=== PATIENT | female | born 1975 | race Caucasian/White ===

== ENCOUNTER 2017-03-12 20:02 | Emergency (ER) | payer SELFPAY ==
[~2017-03-12] VITALS: Ht 172.7 cm; Wt 70.0 kg
[2017-03-12 20:03] VITALS: BP 142/75; PULSE 95; RESP 15; TEMP 97.4; O2SAT 100
--- NOTE | 2017-03-12 20:09 | PD ---
Physical Exam Date Seen by Provider: Mar 12, 2017 Time Seen by Provider: 20:08 Narrative 42 yo female here for laceration to the left thumb. Cut today with clean razor. Unknown tetanus. small cut to the PIP area of the finger. Vitals stable in triage. Awaiting bed placement. Data Data Last Documented VS Vital Signs Date Time Temp Pulse Resp B/P (MAP) Pulse Ox O2 Delivery O2 Flow Rate FiO2 03/12/17 20:03 97.4 95 15 142/75 (97) 100 Room Air [facility] Medical Record Reviewed: Yes Supervised Visit with TED: Gigi Ignacio Mar 12, 2017 20:09
[2017-03-12] MEDS ORDERED: TETANUS/DIPHTHERIA TOXOID ADULT 0.5 ML VIAL IM ONE (21:30)
[2017-03-12] MEDS ORDERED: CEPH-460 PO (21:35)
--- NOTE | 2017-03-12 21:35 | PD ---
HPI Chief Complaint: Laceration/Skin Injury Time Seen by Provider: 21:13 Travel History International Travel<30 days: No Contact w/Intl Traveler<30days: No Traveled to known affect area: No History of Present Illness HPI 42-year-old female with no significant medical history presents to the emergency department for evaluation of a superficial laceration sustained to the lateral aspect of the left thumb. Patient states she was cleaning, using a razor blade when she slipped and cut the thumb. She is concerned that it will get infected due to her type of work. She does clean houses. Denies any alterations in sensation or limitations in range of motion. Patient does report moderate pain at the site, severe with any palpation. Denies any alterations in sensation or limitations in range of motion. She is not up-to- date on her tetanus vaccination. She has no other symptoms to report. [facility] [place] Past Medical History Medical History: Denies Significant Hx ?: Not Past Surgical History Surgical History: No Previous Surgery Social History Alcohol Use: Yes (SOCIAL) Tobacco Use: Yes Substance Use: No Allergies-Medications (Allergen,Severity, Reaction): Coded Allergies: No Known Allergies (Verified Allergy, Unknown, 03/12/17) Reported Meds & Prescriptions Reported Meds & Active Scripts Active Keflex (Cephalexin) 500 Mg Capsule 500 Mg PO Q6H 5 Days Review of Systems Except as stated in HPI: all other systems reviewed are Neg Physical Exam Narrative GENERAL: Well-nourished, well-developed female patient in no acute distress SKIN: Focused skin assessment warm/dry. 1-1/2 cm laceration to the lateral aspect of the left thumb over the PIP. It is well approximated. Bleeding is controlled. HEAD: Normocephalic. EYES: No scleral icterus. No injection or drainage. NECK: Supple, trachea midline. No JVD or lymphadenopathy. CARDIOVASCULAR: Regular rate and rhythm without murmurs, gallops, or rubs. RESPIRATORY: Breath sounds equal bilaterally. No accessory muscle use. MUSCULOSKELETAL: No cyanosis, or edema. Sensation intact distal affected digit. Full flexion and extension of the affected digit Data Data Last Documented VS Vital Signs Date Time Temp Pulse Resp B/P (MAP) Pulse Ox O2 Delivery O2 Flow Rate FiO2 03/12/17 21:37 03/12/17 20:03 97.4 95 15 100 Room Air Orders Orders Tetanus/Diphtheria Tox Adult (Tetanus/Di (9/25/17 21:30) MDM Medical Decision Making Medical Screen Exam Complete: Yes Emergency Medical Condition: Yes Medical Record Reviewed: Yes Differential Diagnosis Laceration superficial versus deep versus abrasion versus avulsion versus tendon injury Narrative Course 42-year-old female presents to the emergency department for evaluation a left thumb laceration. This is a superficial wound. Wound is cleansed and approximated without difficulty. She is updated on her tetanus. Patient will be started on Keflex due to her type of work and to avoid infection. She is counseled on care. Agrees to follow-up with primary care provider and return immediately with any acute worsening symptoms. Procedures Procedure Narrative LACERATION LOCATION: Left thumb LENGTH: 1-1/2 cm NUMBER OF STITCHES/RANCHO: Steri-Strips and Dermabond REPAIR: The area of the laceration was prepped with Betadine and sterilely draped. The wound was copiously irrigated and explored without evidence of foreign body, tendon injury or neurovascular injury. The wound was closed using Steri-Strips and Dermabond. This was a single layer repair. A sterile dressing was applied. The patient was advised to keep the dressing clean and dry. Patient tolerated the procedure well. Diagnosis Primary Impression: Thumb laceration Qualified Codes: S61.012A - Laceration without foreign body of left thumb without damage to nail, initial encounter Referrals: Primary Care Physician Patient Instructions: Finger Laceration (ED), General Instructions Additional Instructions: Keep the area clean and dry Keep it covered while you are working Follow-up with her primary care provider Elevate to reduce pain and swelling Tylenol and/or ibuprofen as directed on the package as needed for pain Return immediately with any acute worsening symptoms Med/Other Pt SpecificInfo: Prescription(s) given Scripts Cephalexin (Keflex) 500 Mg Capsule 500 MG PO Q6H for Infection for 5 Days, #20 CAP 0 Refills Prov: Lisa Carvajal 03/12/17 Disposition: 01 DISCHARGE HOME Condition: Stable Lisa Carvajal Mar 12, 2017 21:35
== END 2017-03-12 21:43 | disposition home or self-care (01) ==
LOC: NEPK 20:02
DX: S61.012A Laceration without foreign body of left thumb without damage to nail, initial encounter (principal); W26.8XXA Contact with other sharp object(s), not elsewhere classified, initial encounter; Y93.E9 Activity, other interior property and clothing maintenance; Y99.0 Civilian activity done for income or pay; Z23 Encounter for immunization; Z72.0 Tobacco use
CPT/HCPCS: 12001; 90471; 90714